=== PATIENT | female | born 1940 | race Two or more races ===

== ENCOUNTER 2025-01-16 11:14 | Emergency (ER) | payer MEDICARE, BC ==
[~2025-01-16] VITALS: Ht 162.6 cm; Wt 45.4 kg
[2025-01-16 15:35] VITALS: BP 132/71; TEMP 98.3; O2SAT 99
== END 2025-01-16 15:35 | disposition home or self-care (01) ==
LOC: ER 11:25
DX: S60.211A Contusion of right wrist, initial encounter (principal); S00.81XA Abrasion of other part of head, initial encounter; G70.00 Myasthenia gravis without (acute) exacerbation; F03.90 Unspecified dementia, unspecified severity, without behavioral disturbance, psychotic disturbance, mood disturbance, and anxiety; X58.XXXA Exposure to other specified factors, initial encounter; Y93.89 Activity, other specified; Y92.89 Other specified places as the place of occurrence of the external cause; Y99.9 Unspecified external cause status
CPT/HCPCS: 70450-TC; 72125-TC; 73090-TC